=== PATIENT | female | born 1955 | race Asian ===

== ENCOUNTER → 2016-03-27 | Outpatient (CLI) | payer BC ==
[~2016-03-27] MED LIST: HYDROCHLOROTHIA25 M1 PO; NORCO 5-325 TA1 EACH PO; SYNTHROID25 MCG PO
== END ==
LOC: CAT 15:42
DX: M53.3 Sacrococcygeal disorders, not elsewhere classified (principal); M43.26 Fusion of spine, lumbar region

== ENCOUNTER → 2017-07-06 | Outpatient (CLI) | payer BC | LOC: ULTRA 05:48 | DX: E03.9 Hypothyroidism, unspecified (principal) ==

== ENCOUNTER → 2018-12-09 | Outpatient (CLI) | payer OTHER | LOC: CAT 12:11 | DX: Z13.6 Encounter for screening for cardiovascular disorders (principal); E78.00 Pure hypercholesterolemia, unspecified; I25.10 Atherosclerotic heart disease of native coronary artery without angina pectoris ==

== ENCOUNTER 2019-11-16 20:56 | Emergency (ER) | payer BC ==
[~2019-11-16] VITALS: Ht 160 cm; Wt 71.7 kg
[2019-11-16] MEDS ORDERED: MELOXICAM15 MG PO (21:06)
[2019-11-16] MEDS ORDERED: OSPHENA60 MG PO (21:07)
[2019-11-16] MEDS ORDERED: ESCITALOPRAM OX20 MG PO (21:07)
[2019-11-16] MEDS ORDERED: ESTRADIOL42.5 GM VAG (21:08)
[2019-11-16] MEDS ORDERED: FINASTERIDE5 MG PO (21:08)
[2019-11-16] MEDS ORDERED: ATORVASTATIN CA10 MG PO (21:08)
[2019-11-16] MEDS ORDERED: TRIAMTERENE/HCT1 CA1 PO (21:09)
[2019-11-17] MEDS ORDERED: HYDROCODON-ACE118 ML PO (01:10)
[2019-11-17 01:20] VITALS: BP 111/69
== END 2019-11-17 01:20 | disposition home or self-care (01) ==
LOC: ER 20:56
DX: S02.642A Fracture of ramus of left mandible, initial encounter for closed fracture (principal); S02.652A Fracture of angle of left mandible, initial encounter for closed fracture; S02.612A Fracture of condylar process of left mandible, initial encounter for closed fracture; Z96.653 Presence of artificial knee joint, bilateral; Z79.899 Other long term (current) drug therapy; W01.0XXA Fall on same level from slipping, tripping and stumbling without subsequent striking against object, initial encounter; Y93.89 Activity, other specified; Y92.89 Other specified places as the place of occurrence of the external cause; Y99.8 Other external cause status

== ENCOUNTER → 2020-03-26 | Outpatient (CLI) | payer BC ==
[~2020-03-26] MED LIST changes: +ATORVASTATIN CA10 MG PO; +ESCITALOPRAM OX20 MG PO; +ESTRADIOL42.5 GM VAG; +FINASTERIDE5 MG PO; +HYDROCODON-ACE118 ML PO; +MELOXICAM15 MG PO; +OSPHENA60 MG PO; +TRIAMTERENE/HCT1 CA1 PO
== END ==
LOC: LAB 13:31
PROVIDERS: ATTEND Family Medicine
DX: Z20.828 Contact with and (suspected) exposure to other viral communicable diseases (principal)